=== PATIENT | male | born 2000 | race Caucasian/White ===

== ENCOUNTER 2023-05-05 12:30 | Outpatient (CLI) | payer OTHER ==
--- NOTE | 2023-05-05 16:42 | MRI Report ---
PROCEDURE: SHOULDER WO - LT INDICATIONS: SHOULDER PAIN TECHNIQUE: Noncontrast oblique coronal T2 fast spin echo with fat saturation, oblique sagittal T1 spin echo and T2 fast spin echo with fat saturation, axial T1 spin echo and T2 fast spin echo with fat saturation t hrough the shoulder. COMPARISON: None. FINDINGS: Image quality: Excellent. Rotator cuff: Distal supraspinatus tendinosis at its insertion on humeral head is seen. Distal infras pinatus tendon is intact. Distal subscapularis tendinosis. No full-thickness rotator cuff tendon rupt ure. No rotator cuff muscle atrophy on sagittal images. Bones and bursae: No bone marrow contusions or fractures. No acromioclavicular joint degeneration. The acromion demonstrates conventional anatomy, without an os acromiale. No pathologic subacromial/ subdeltoid bursal fluid is present. Capsule and soft tissues: In the absence of intra-articular contrast, the labrum and glenohumeral li gaments appear intact. The long head of the biceps tendon demonstrates normal location and morpholog y. The rotator interval appears normal, without fibrosis. The coracohumeral ligament is normal in t hickness. IMPRESSION: 1. Distal supraspinatus and subscapularis tendinosis. No rotator cuff tendon rupture. No muscle atrop hy. 2. No marrow edema. No shoulder fracture or dislocation. No significant joint effusion or subacromial subdeltoid bursal fluid. 3. No gross focal shoulder labral tear. Reviewed by: Juan Antonio Arnold MD on 05/05/2023 4:41 PM PDT Approved by: Juan Antonio Arnold MD on 05/05/2023 4:41 PM PDT Station ID: [id number]
== END 2023-05-05 12:31 | disposition home or self-care (01) ==
LOC: DI 12:30
DX: M75.82 Other shoulder lesions, left shoulder (principal)